=== PATIENT | female | born 1970 | race African-American/Black ===

== ENCOUNTER 2018-08-30 00:11 | Observation (INO) ==
[2018-08-30 01:08] LABS: Basophils % 0.4 % (0.0-0.8); Eosinophils # 0.2 10*3/uL (0.0-0.87); Eosinophils % 2.1 % (0.00-10.9); Hematocrit 38.7 VOL% (35.7-47.0); Hemoglobin 12.4 GM/DL (12.0-16.0); Immature Granulocytes % 0.4 %; Immature Granulocytes Absolute 0.03 #; Lymphocytes % 27.8 % (21.3-54.2); Mean Corpuscular Volume 90.4 FL (87-102); Mean Platelet Volume 10.7 FL (9.6-12.0); Monocytes % 6.8 % (1.7-12.7); Neutrophils % 62.5 % (38.7-73.9); Platelet Count 252 T/CUMM (130-400); Red Blood Count 4.28 MC/CUMM (3.8-5.5); Red Cell Distribution Width 13.2 % (9.3-17.3); White Blood Count 7.2 T/CUMM (4-12)
[2018-08-30 01:16] LABS: INR 1.2; PT Patient Result 13.2 SECS; Partial Thromboplastin Time 27.3 SECS (0-40)
[2018-08-30 01:34] LABS: Albumin 3.7 G/DL (3.4-5.0); Bilirubin,Total 0.4 MG/DL (0.2-1.0); Calcium 9.1 MG/DL (8.5-10.1); Osmolality,Calculated 281.1 MOS/KG (273-304); Total Protein 7.6 G/DL (6.4-8.3)
[2018-08-30] MEDS ORDERED: POTASSIUM CHLORIDE 20 MEQ PACK PO STA (01:42)
[2018-08-30] MEDS ORDERED: NITROGLYCERIN SL 0.4 MG TABLET SL PRN (03:24)
[2018-08-30] MEDS ORDERED: ONDANSETRON 4 MG/2 ML VIAL IV PRN (03:24)
[2018-08-30] MEDS: ASPIRIN CHEW 81 MG TABLET PO SCH (04:15)
[2018-08-30 04:28] LABS: Basophils % 0.4 % (0.0-0.8); Eosinophils # 0.2 10*3/uL (0.0-0.87); Eosinophils % 2.2 % (0.00-10.9); Hematocrit 36.8 VOL% (35.7-47.0); Hemoglobin 11.9 GM/DL (12.0-16.0); Immature Granulocytes % 0.3 %; Immature Granulocytes Absolute 0.02 #; Lymphocytes # 2.5 10*3/uL (1.4-4.0); Lymphocytes % 32.1 % (21.3-54.2); Mean Corpuscular HGB Conc 32.3 GM/DL (32-36); Mean Corpuscular Volume 90.4 FL (87-102); Mean Platelet Volume 10.6 FL (9.6-12.0); Monocytes % 8.2 % (1.7-12.7); Neutrophils % 56.8 % (38.7-73.9); Platelet Count 244 T/CUMM (130-400); Red Blood Count 4.07 MC/CUMM (3.8-5.5); Red Cell Distribution Width 13.2 % (9.3-17.3); White Blood Count 7.7 T/CUMM (4-12)
[2018-08-30 04:50] LABS: Albumin 3.5 G/DL (3.4-5.0); Bilirubin,Total 0.4 MG/DL (0.2-1.0); Calcium 8.8 MG/DL (8.5-10.1); Osmolality,Calculated 281.1 MOS/KG (273-304); Total Protein 6.7 G/DL (6.4-8.3)
[2018-08-30] MEDS: CETIRIZINE 10 MG TABLET PO SCH (12:51)
[2018-08-30] MEDS: NEBIVOLOL 10 MG TABLET PO SCH (12:51)
[2018-08-30] MEDS: PANTOPRAZOLE 40 MG TABLET PO SCH ×2 (12:52→20:53)
[2018-08-30] MEDS: LOSARTAN 50 MG TABLET PO SCH (12:52)
[2018-08-30] MEDS: DOXAZOSIN 4 MG TABLET PO SCH ×2 (12:52→20:51)
[2018-08-31] MEDS: ASPIRIN CHEW 81 MG TABLET PO SCH (04:45)
[2018-08-31] MEDS ORDERED: SPIRONOLACTONE 50 MG TABLET PO SCH (09:00)
[2018-08-31] MEDS: LOSARTAN 50 MG TABLET PO SCH (09:20)
[2018-08-31] MEDS: PANTOPRAZOLE 40 MG TABLET PO SCH (09:20)
[2018-08-31] MEDS: CETIRIZINE 10 MG TABLET PO SCH (09:20)
[2018-08-31] MEDS: NEBIVOLOL 10 MG TABLET PO SCH (09:20)
[2018-08-31] MEDS: DOXAZOSIN 4 MG TABLET PO SCH (09:21)
[2018-08-31 12:46] VITALS: BP 161/80
== END 2018-08-31 14:38 | disposition home or self-care (01) ==
LOC: N.ED 00:11 → N.EDINP 00:11 → N.TELES 03:49
PROVIDERS: ADMIT Internal Medicine Cardiovascular Disease; ATTEND Internal Medicine Cardiovascular Disease